=== PATIENT | female | born 1995 | race Caucasian/White ===

== ENCOUNTER → 2023-06-16 04:10 | Outpatient (CLI) | payer MEDICAID, SELFPAY ==
--- NOTE | 2023-06-16 | DI.US_ITS ---
Exam(s) US TRANSVAGINAL EXAM: US TRANSVAGINAL CLINICAL HISTORY: FOLLICLE MEASUREMENTS,ENDOMETRIAL THICKNESS,INFERTILITY,N97.9. TECHNIQUE: Limited transvaginal ultrasound exam was performed COMPARISON: No exams were available for comparison FINDINGS: UTERUS: Endometrium: 7 cm. OVARIES: Right: 3.3 x 2.0 x 3.2 cm Follicles: 1.1 centimeter follicle. 1.4 centimeter follicle. Left: 2.2 x 1.8 x 1.7 cm Follicles: 8 millimeter follicle. IMPRESSION: Endometrial stripe appears normal measures 7 millimeters. 1. Small bilateral ovarian follicles. DATA REPOSITORY:
== END ==
PROVIDERS: PCP Nurse Practitioner Family; Visit Provider Obstetrics & Gynecology
DX: N88.8 Other specified noninflammatory disorders of cervix uteri (principal); N97.9 Female infertility, unspecified
CPT/HCPCS: 76830

== ENCOUNTER → 2023-06-18 00:36 | Outpatient (CLI) | payer MEDICAID, SELFPAY ==
--- NOTE | 2023-06-18 | DI.US_ITS ---
Exam(s) US TRANSVAGINAL EXAM: US TRANSVAGINAL CLINICAL HISTORY: FOLLICLE MEASUREMENTS FOR IUI. TECHNIQUE: Limited transvaginal exam performed for follicle count endometrial thickness.. COMPARISON: US US TRANSVAGINAL from 06/16/2023 FINDINGS: UTERUS: Position: Anteverted. Endometrium: 7 millimeters Myometrium: Unremarkable. Cervix: Unremarkable. OVARIES: Right: 12 millimeter follicle. Left: 11 millimeter, 7 millimeter and 12 millimeter follicles. CUL-DE-SAC: Free fluid: None. IMPRESSION: Endometrial stripe 7 millimeters. One follicle right ovary. Three follicles left ovary. DATA REPOSITORY:
== END ==
PROVIDERS: PCP Nurse Practitioner Family; Visit Provider Obstetrics & Gynecology Reproductive Endocrinology
DX: N97.9 Female infertility, unspecified (principal)
CPT/HCPCS: 76830

== ENCOUNTER 2024-05-12 16:05 | Emergency (ER) | payer MEDICAID, SELFPAY ==
[2024-05-12 16:12] VITALS: BP 139/94; PULSE 87; RESP 10; TEMP 36.5; O2SAT 98
--- NOTE | 2024-05-12 16:30 | DI.RAD_ITS ---
Exam(s) XR KNEE RT 3V AP,LAT,NANI EXAM: XR KNEE RT 3V AP,LAT,NANI CLINICAL HISTORY: knee pain. TECHNIQUE: 2D digital imaging was performed. COMPARISON: No exams were available for comparison FINDINGS: 3 views No evidence of acute fracture nor obvious joint effusion. Bone density normal. No knee joint space narrowing. No osteochondral defects seen. Increased density anteriorly is related to a slightly prominent anterior to tibial tubercle. There i s evidence of prior Fishs Eddy Schlatter's. IMPRESSION: No acute osseous findings in the right knee. No joint effusion evident. DATA REPOSITORY: RADIATION DOSE DELIVERED:
--- NOTE | 2024-05-12 18:19 | W.ED.GENAD ---
Discharge Plan Disposition Patient Disposition: Home Condition: Stable Discharge Details Clinical Impression: Acute pain of right knee Primary Care Provider: None,None ED Provider: Shawn Santos Home Meds and New Rx's Prescriptions: No Action epinephrine 0.3 mg/0.3 mL auto-injector 0.3 ml IM ONCE PRN Patient Comments: INJECT INTRAMUSCULARLY NEEDED FOR SEVERE ALLERGIC REACTION, MAY REPEATE ONE TIME IN 5 MINUTES IF NOT RESPONDING. THEN CALL 911 Discharge Instructions Additional Instructions: wear brace and use crutches for comfort. bear weight as tolerated an outpatient MRI has been ordered and referral to orthopedics placed. please get MRI before ortho appointment. Referrals: Mekhi Lozano MD [ [facility] STAFF PHYSICIAN] - [facility] General Date/Time Provider Initiated Documentation: 05/12/24 16:33. Limitations to Documentation: no limitations. Information obtained by: patient. HPI Narrative: 28-year-old female without significant past medical history presents for evaluation of right knee pain. 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 She reports that it felt like it bent backwards. Since that time she has had progressively worsening pain in the knee. Pain worse when the knee is hanging unsupported. Worse with walking. Reports that she went to urgent care yesterday, no x-ray imaging was obtained, but she did get an Reddy wrap and she reports some relief with that. She reports history of knee surgery about 10 years ago. Related Data Home Medications ?Medication ?Instructions ?Recorded ?Confirmed epinephrine 0.3 mg/0.3 mL 0.3 ml IM ONCE PRN 05/11/24 05/12/24 injection, auto-injector Allergies Allergy/AdvReac Type Severity Reaction Status Date / Time venom-honey bee Allergy Severe Anaphylaxis Verified 05/12/24 16:17 menthol Allergy Intermediate localized Unverified 05/12/24 16:17 reash morphine Allergy Skin Rash Unverified 05/12/24 16:17 codeine AdvReac Intermediate MAKES HER Unverified 05/12/24 16:17 HYPER Medical Tape AdvReac Intermediate Skin Rash Uncoded 05/12/24 16:17 General Stated Complaint: Orthopedic FABI: 4 Exam Narrative Exam Narrative: Review of Systems: All systems reviewed & are unremarkable except as noted in HPI and below Well-developed, no acute distress NCAT Unlabored respiratory effort Right knee with scattered bruising noted. Mild effusion, no patellar instability, straight leg raise intact. Significant tenderness with palpation Course Vital Signs Vital signs: Vital Signs Temperature 36.5 C 05/12/24 16:12 Pulse 87 05/12/24 16:12 Respiratory Rate 10 L 05/12/24 16:12 Blood Pressure 139/94 H 05/12/24 16:12 Pulse Oximetry 98 05/12/24 16:12 Temperature 36.5 C 05/12/24 16:12 Temperature Source Oral 05/12/24 16:12 Pulse 87 05/12/24 16:12 Respiratory Rate 10 L 05/12/24 16:12 Respiratory Effort Normal, Non-Labored 05/12/24 16:18 Blood Pressure 139/94 H 05/12/24 16:12 Blood Pressure Position Sitting 05/12/24 16:12 Pulse Oximetry 98 05/12/24 16:12 Oxygen Delivery Method Room Air 05/12/24 16:12 Oxygen Flow Rate 0 05/12/24 16:12 Pain Level 7 05/12/24 16:50 Lab/Test Results Lab/Test Results: POC- Test(urine) Negative Medical Decision Making Emergent evaluation of right knee pain. Traumatic injury mechanism is minimal however there could be some hyper extension process and concern for ligamentous disruption. The patient does have history of surgery. An x-ray of the right knee was obtained. I did review the radiology report: No acute bony process. Given her mechanism and symptoms, she was provided a knee brace and crutches for weightbearing as tolerated and comfort. I have been ordered an outpatient MRI to facilitate her orthopedic follow-up. If MRI is abnormal, she should make follow-up appointment with orthopedics. Referral has been sent. Quality:SDOH Health Related Social Needs: No Data to Display PFSH All Active Problems Acute pain of right knee (Acute) Depression (Acute) Dysuria (Acute 10/24/12) History of arthroscopy of knee (Acute) Kidney stone (Acute 10/23/13) CT scan 2013 (2x 3mm on right - 1x 2mm on left)/Urology Surgical History Arthroplasty of knee x 2; SONI OSBORN Family History Mother Hyperlipidemia Father Essential hypertension Heart disease Hyperlipidemia Myocardial infarction Maternal Grandfather No problems noted. Paternal Grandfather Essential hypertension Heart disease Myocardial infarction Maternal Grandmother Essential hypertension Diabetes Heart disease Hyperlipidemia Paternal Grandmother Essential hypertension Stroke Son No problems noted. Daughter No problems noted. Social History Smoking/Tobacco Use Status: Never Smoking risk assessment performed?: Yes Alcohol Intake: former Drug use: Never Substance use type: does not use Caregiver/Support person: No Household members: family and children Housing: apartment Communication Needs: None Do you need help understanding health information?: Rarely Pets and animals: Yes Pets and animals: cat(s) and dog(s) Sexually active: Yes Do you think of yourself as: straight/heterosexual Current gender identity: female What is your relationship status?: How often do you talk on the phone with friends or family?: three or more times per week How often do you get together with friends or relatives?: twice per week How often do you attend gnosticist or adventism services?: decline to answer Do you belong to any clubs or organized social groups?: no Panel score (0-1 are the most socially isolated patients): 2 What type of physical activity do you participate in: none Annette/Samaritan: None Special annette needs: No Seatbelt use: always Helmet use: Yes Helmet use: sometimes Drive 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 Do you feel safe at home: Yes Do you feel safe in your relationship?: Yes PAWSS Have you Been Recently Intoxicated or Drunk Within the Last 30 days?: No Have you Ever Experienced Previous Episodes of Alcohol Withdrawal?: No Have you ever Experienced Withdrawal Seizures?: No Have you ever Experienced Delirium Tremens(DT)s?: No Have you ever undergone Alcohol Rehabilitation Treatment (i.e, inpt ot outpatient treatment programs)?: No Have you ever Experienced Blackouts?: No Have you ever Combined Alcohol with other Downers within the last 90 days?: No Have you ever Combined Alcohol with any other Substance of Abuse during the last 90 days?: No Positive Blood Alcohol level on Presentation? [PCS.BAL]: No Evidence of Increased Autonomic Activity (i.e. HR>120, tremor, sweating, agitation, nausea)?: No Result: 0
--- NOTE | 2024-05-13 12:21 | NUR.NOTE ---
Accessed chart for [facility] billing purposes; to get discharge diagnosis. Nursing Note:
== END 2024-05-12 17:24 | disposition home or self-care (01) ==
PROVIDERS: Emergency Provider Emergency Medicine
DX: M25.561 Pain in right knee (principal)
CPT/HCPCS: 73562; 81025; 99283

== ENCOUNTER 2024-05-15 09:54 | Outpatient (CLI) | payer MEDICAID, SELFPAY ==
--- NOTE | 2024-05-15 | DI.MRI_ITS ---
Exam(s) MR LOWER JOINT RT WO EXAM: MR LOWER JOINT RT WO CLINICAL HISTORY: Jt instability and pain, x-ray negative, ? internal derangement. TECHNIQUE: Multiplanar multisequence MRI was performed. COMPARISON: MR MRI R LOWER JOINT WO CONT from 08/06/2010 CR XR KNEE RT 3V AP,LAT,NANI from 05/12/2024 FINDINGS: BONES: There is no fracture or contusion pattern. Postsurgical changes at region of tibial tuberosi ty. JOINTS: A trace joint effusion is present. Articular cartilage: Patellofemoral joint: Articular cartilage is unremarkable. Medial femoral tibial joint: Articular cartilage is unremarkable. Lateral femoral tibial joint: Articular cartilage is unremarkable. LIGAMENTS: Anterior Cruciate: Unremarkable. Posterior Cruciate: Unremarkable. Medial Collateral:Unremarkable. Lateral Collateral ligament complex: Unremarkable. TENDONS: Extensor mechanism: Unremarkable. Medial retinaculum: Unremarkable. Lateral retinaculum: Unremarkable. Popliteus: Unremarkable. MENISCI: The medial meniscus is unremarkable. The lateral meniscus is unremarkable. MUSCLES: Unremarkable. SOFT TISSUES: Unremarkable. IMPRESSION: Postsurgical changes at region of tibial tuberosity. No evidence of internal derangement. DATA REPOSITORY:
== END 2024-05-15 10:14 ==
LOC: DI 09:56
PROVIDERS: Visit Provider Emergency Medicine
DX: Z98.890 Other specified postprocedural states (principal); M79.661 Pain in right lower leg
CPT/HCPCS: 73721

== ENCOUNTER 2024-12-20 20:16 | Emergency (ER) | payer MEDICAID, SELFPAY ==
[2024-12-20 20:24] VITALS: BP 140/87; PULSE 105; RESP 18; TEMP 36.9; O2SAT 98
[2024-12-20] MEDS: Diph,Pertuss(Acell),Tet Vac/Pf 0.5 ML SYR IM (21:10)
--- NOTE | 2024-12-20 21:27 | ED.GENADUL_ITS ---
Discharge Plan Disposition Patient Disposition: Home Condition: Stable Discharge Details Clinical Impression: Leg wound, left Primary Care Provider: Unknown,Unknown ED Provider: Shawn Santos Home Meds and New Rx's Prescriptions: No Action epinephrine 0.3 mg/0.3 mL auto-injector 0.3 ml IM ONCE PRN Patient Comments: INJECT INTRAMUSCULARLY NEEDED FOR SEVERE ALLERGIC REACTION, MAY REPEATE ONE TIME IN 5 MINUTES IF NOT RESPONDING. THEN CALL 911 ondansetron HCl 4 mg tablet 4 mg PO Q8H PRN (Reason: nausea and vomiting) Qty: 10 0RF Discharge Instructions Additional Instructions: KEEP WOUND CLEAN WITH SOAP AND WATER TETANUS WAS UPDATED TODAY HPI General Date/Time Provider Initiated Documentation: 12/20/24 20:23 . Limitations to Documentation: no limitations . Information obtained by: patient . HPI Narrative: For 29-year-old female without significant past medical history presents for evaluation of left leg injury. The patient reports just prior to arrival she was rushing through her home when she scratched her leg on a piece of wood and that the nail went into her leg. There was some bleeding. Local wound care was performed prior to arrival and bleeding has stopped. She states that she was not sure if she needed to get a tetanus shot. Her last tetanus shot was with her 7 years ago. Related Data Home Medications ?Medication ?Instructions ?Recorded ?Confirmed epinephrine 0.3 mg/0.3 mL 0.3 ml IM ONCE PRN 05/11/24 09/18/24 injection, auto-injector ondansetron HCl 4 mg tablet 4 mg PO Q8H PRN nausea and 09/13/24 09/13/24 vomiting #10 tabs Previous Rx's ?Medication ?Instructions ?Recorded ondansetron HCl 4 mg tablet 4 mg PO Q8H PRN nausea and 09/13/24 vomiting #10 tabs Allergies Allergy/AdvReac Type Severity Reaction Status Date / Time venom-honey bee Allergy Severe Anaphylaxis Verified 09/13/24 14:50 menthol Allergy Intermediate localized Unverified 09/13/24 14:50 reash morphine Allergy Skin Rash Unverified 09/13/24 14:50 codeine AdvReac Intermediate MAKES HER Unverified 09/13/24 14:50 HYPER Medical Tape AdvReac Intermediate Skin Rash Uncoded 09/13/24 14:50 General Stated Complaint: GenMedical FABI: 4 Exam Narrative Exam Narrative: Review of Systems: All systems reviewed & are unremarkable except as noted in HPI and below Well-developed, no acute distress NCAT Anterior left leg with small abrasion and puncture wound, no active bleeding, no crepitus, no significant tenderness. Course Vital Signs Vital signs: Vital Signs Temperature 36.9 C 12/20/24 20:24 Pulse 105 H 12/20/24 20:24 Respiratory Rate 18 12/20/24 20:24 Blood Pressure 140/87 12/20/24 20:24 Pulse Oximetry 98 12/20/24 20:24 Temperature 36.9 C 12/20/24 20:24 Temperature Source Oral 12/20/24 20:24 Pulse 105 H 12/20/24 20:24 Respiratory Rate 18 12/20/24 20:24 Respiratory Effort Normal 12/20/24 20:27 Blood Pressure 140/87 12/20/24 20:24 Pulse Oximetry 98 12/20/24 20:24 Oxygen Delivery Method Room Air 12/20/24 20:24 Oxygen Flow Rate 0 12/20/24 20:24 Pain Level 0 12/20/24 20:24 Medical Decision Making Emergent evaluation of leg injury. Patient here requiring a tetanus shot. There is no signs of acute infectious etiology the wound is small. No indication for imaging and low suspicion for foreign body. Recommend continued local wound care and her tetanus was updated. Follow-up as needed Quality:SDOH Health Related Social Needs: No Data to Display [facility] All Active Problems (Updated 12/20/24 @ 20:55 by Shawn Santos MD) Leg wound, left (Acute) Depression (Acute) Dysuria (Acute 10/24/12) History of arthroscopy of knee (Acute) Kidney stone (Acute 10/23/13) CT scan 2013 (2x 3mm on right - 1x 2mm on left)/Urology Surgical History Arthroplasty of knee x 2; SONI OSBORN Family History Mother Hyperlipidemia Father Essential hypertension Heart disease Hyperlipidemia Myocardial infarction Maternal Grandfather No problems noted. Paternal Grandfather Essential hypertension Heart disease Myocardial infarction Maternal Grandmother Essential hypertension Diabetes Heart disease Hyperlipidemia Paternal Grandmother Essential hypertension Stroke Son No problems noted. Daughter No problems noted. Social History Smoking/Tobacco Use Status: Never Smoking risk assessment performed?: Yes Alcohol Intake: former Drug use: Never Substance use type: does not use Caregiver/Support person: No Household members: family and children Housing: apartment Communication Needs: None Do you need help understanding health information?: Rarely Pets and animals: Yes Pets and animals: cat(s) and dog(s) Sexually active: Yes Do you think of yourself as: straight/heterosexual Current gender identity: female What is your relationship status?: How often do you talk on the phone with friends or family?: three or more times per week How often do you get together with friends or relatives?: twice per week How often do you attend mandaeism or yazidi services?: decline to answer Do you belong to any clubs or organized social groups?: no Panel score (0-1 are the most socially isolated patients): 2 What type of physical activity do you participate in: none Annette/Lutheran: None Special annette needs: No Seatbelt use: always Helmet use: Yes Helmet use: sometimes Drive intox 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
== END 2024-12-20 21:22 | disposition home or self-care (01) ==
PROVIDERS: Emergency Provider Emergency Medicine
DX: S81.812A Laceration without foreign body, left lower leg, initial encounter (principal); W26.8XXA Contact with other sharp object(s), not elsewhere classified, initial encounter
CPT/HCPCS: 99283 ×2; 90471; 90715

== ENCOUNTER 2024-12-31 21:03 | Emergency (ER) | payer OTHER, SELFPAY ==
[2024-12-31 21:06] VITALS: BP 151/97; PULSE 93; RESP 20; TEMP 36.6; O2SAT 98
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
[2024-12-31] MEDS: Cyclobenzaprine 10 MG TAB, 3 TABS/BTL PO (21:42)
[2024-12-31 21:47] VITALS: PULSE 90; RESP 18; O2SAT 99
== END 2024-12-31 21:48 | disposition home or self-care (01) ==
LOC: ER 21:50
PROVIDERS: Emergency Provider Physician Assistant
DX: G44.319 Acute post-traumatic headache, not intractable (principal); F07.81 Postconcussional syndrome; V89.2XXA Person injured in unspecified motor-vehicle accident, traffic, initial encounter
CPT/HCPCS: 99283

== ENCOUNTER → 2025-07-17 00:22 | Outpatient (CLI) | payer MEDICAID, SELFPAY ==
--- NOTE | 2025-07-17 | DI.US_ITS ---
Exam(s) US TRANSVAGINAL EXAM: US TRANSVAGINAL CLINICAL HISTORY: Z31.83,ENCOUNTER FOR ART PROCEDURE. TECHNIQUE: Transvaginal pelvic ultrasound was performed using standard protocol. COMPARISON: US US TRANSVAGINAL from 06/18/2023 FINDINGS: UTERUS: Position: Anteverted. Size: 8.8 long by 4.1 AP by 5.1 transverse cm Endometrium: 0.6 cm. The endometrial stripe is homogeneous. Normal for patient's menstrual status. There is a tiny amount of fluid seen within the endometrial canal. Myometrium: Unremarkable. Cervix: Unremarkable. OVARIES: Right: 2.6 x 2.5 x 2.5 cm Cyst or mass: No suspicious cystic or solid masses. There are 6 follicles present. 6 x 5 x 6 mm; 7 x 6 x 7 mm; 8 x 6 x 9 mm; 9 x 6 x 8 mm; 5 x 7 x 6 mm and 3 x 4 x 4 mm. Left: 2.9 x 1.6 x 2.5 cm Cyst or mass: No suspicious cystic or solid masses. There are 5 follicles present. 8 x 5 x 6 mm; 4 x 4 x 5 mm; 5 x 5 x 5 mm; 5 x 4 x 4 mm and 7 x 6 x 7 mm. DOPPLER: Color: Symmetric and uniform flow to both ovaries. CUL-DE-SAC: Free fluid: None. Other: None. IMPRESSION: 1. Normal-appearing uterus with endometrial stripe within normal limits. 2. Bilateral ovarian follicles as described above. DATA REPOSITORY:
== END ==
PROVIDERS: PCP Nurse Practitioner Family; Visit Provider Obstetrics & Gynecology Reproductive Endocrinology
DX: Z31.83 Encounter for assisted reproductive fertility procedure cycle (principal); N83.01 Follicular cyst of right ovary
CPT/HCPCS: 76830

== ENCOUNTER 2025-07-17 09:15 | Outpatient (CLI) | payer MEDICAID, SELFPAY ==
[2025-07-17 09:03] LABS: TSH 2.19 uIU/mL (0.55-4.78)
[2025-07-17 09:07] LABS: HCG Quant, Pregnancy < 3 mIU/mL (1.5-4.2)
[2025-07-17 21:19] LABS: T3,Free 3.7 pg/mL (2.8-5.3)
[2025-07-17 22:02] LABS: FSH 8.1 mIU/mL (See Note)
[2025-07-17 22:07] LABS: LH 8.6 mIU/mL (See Note)
== END 2025-07-17 09:16 | disposition home or self-care (01) ==
LOC: LBO 09:15
PROVIDERS: PCP Nurse Practitioner Family; Referring Provider Obstetrics & Gynecology Reproductive Endocrinology; Visit Provider Obstetrics & Gynecology Reproductive Endocrinology
DX: Z31.83 Encounter for assisted reproductive fertility procedure cycle (principal)
CPT/HCPCS: 36415; 82670; 83001; 83002; 83520; 84144; 84439; 84443; 84481; 84702

== ENCOUNTER → 2025-07-20 00:29 | Outpatient (CLI) | payer MEDICAID, SELFPAY ==
--- NOTE | 2025-07-20 | DI.US_ITS ---
Exam(s) US TRANSVAGINAL EXAM: US TRANSVAGINAL CLINICAL HISTORY: ART PROCEDURE Z31.83 INCLUDE # FOLLICLES, SIZA OF EACH, ENDOMETRIAL TECHNIQUE: Ultrasound of the pelvis was performed transvaginal. COMPARISON: US US TRANSVAGINAL from 07/17/2025 FINDINGS: UTERUS: Anteverted Measures 7.3 cm length x 3.5 cm AP x 4.9 cm wide. There are no uterine fibroids. Endometrial thickness measures 4.8 mm and appears relatively homogeneous. There is no fluid in the endometrial canal. There is a small hyperechoic focus in the right-side of the endometrium at the level the fundus, this measuring 2-3 mm. CERVIX: There is no fluid in the endocervical canal. A few tiny nabothian cysts are noted. RIGHT OVARY: Measures 3.2 x 2.2 x 2.5 cm Appears to contain 14 follicles which are detailed on the faxed follicle sheet. The largest follicles in the right ovary measures 8 x 8 x 8 6 mm and 7 x 7 x 7 mm LEFT OVARY: Measures 3.3 x 1.7 x 2.3 cm Appears to contain 9 follicles which are detailed on the fax follicle sheet. The largest follicle in the left ovary measures 9 x 9 x 8 mm. CUL-DE-SAC: No free fluid evident. IMPRESSION: 1. Endometrial stripe thickness is 4.8 cm and relatively homogeneous 2. Ovarian follicles as above. The largest follicle is in the left ovary and measures 9 x 9 x 8 mm. 3. No free fluid evident in the adnexal regions and cul-de-sac. Please also refer to accompanying faxed sheet DATA REPOSITORY:
== END ==
LOC: DI 00:29
PROVIDERS: PCP Nurse Practitioner Family; Visit Provider Obstetrics & Gynecology Reproductive Endocrinology
DX: Z31.83 Encounter for assisted reproductive fertility procedure cycle (principal)
CPT/HCPCS: 76830

== ENCOUNTER 2025-07-20 02:25 | Outpatient (CLI) | payer MEDICAID, SELFPAY ==
[2025-07-20 18:23] LABS: LH 21.2 mIU/mL (See Note)
== END 2025-07-20 02:26 | disposition home or self-care (01) ==
LOC: LBO 02:25
PROVIDERS: PCP Nurse Practitioner Family; Visit Provider Obstetrics & Gynecology Reproductive Endocrinology
DX: Z31.83 Encounter for assisted reproductive fertility procedure cycle (principal)
CPT/HCPCS: 36415; 82670; 83002; 84144

== ENCOUNTER → 2025-07-23 00:43 | Outpatient (CLI) | payer MEDICAID, SELFPAY ==
--- NOTE | 2025-07-23 | DI.US_ITS ---
Exam(s) US TRANSVAGINAL EXAM: US TRANSVAGINAL CLINICAL HISTORY: # ALL FOLLICLES SIZE, ENDOMETRIAL THICKNESS TYPE TRILAMINAR. TECHNIQUE: Ultrasound of the pelvis, transvaginal was performed using standard protocol. COMPARISON: US US TRANSVAGINAL from 07/20/2025 FINDINGS: UTERUS: Position: Anteverted. Size: 8.5 x 3.6 x 5.0 cm Endometrium: 7 mm. Trilaminar appearance. Myometrium: C section scar. Cervix: Unremarkable. OVARIES: Right: 3.2 x 2.3 x 2.8 cm Follicles: Total of 10 follicles. The largest follicle measures 17 x 15 x 14 millimeters. Second largest follicle measures 13 x 12 x 10 millimeters. Other follicles measure less than 1 cm in size. Left: 4.1 x 2.4 x 3.0 cm Follicles: 12. Largest follicle measures 14 x 11 x 13. Three follicles measure near 10 millimeters. Other small follicles present. DOPPLER: Color: Symmetric and uniform flow to both ovaries. No hyperemia. Duplex: Normal ovarian arterial waveforms visualized. CUL-DE-SAC: Free fluid: None. IMPRESSION: 1. Endometrial stripe has a trilaminar appearance and measures 7 millimeters in thickness. 2. Bilateral ovarian follicles, largest on the right measuring 17 millimeters. DATA REPOSITORY:
== END ==
LOC: DI 00:43
PROVIDERS: PCP Nurse Practitioner Family; Visit Provider Obstetrics & Gynecology Reproductive Endocrinology
DX: Z31.83 Encounter for assisted reproductive fertility procedure cycle (principal); N83.01 Follicular cyst of right ovary; N83.02 Follicular cyst of left ovary
CPT/HCPCS: 76830

== ENCOUNTER 2025-07-23 01:23 | Outpatient (CLI) | payer MEDICAID, SELFPAY ==
[2025-07-23 18:20] LABS: LH 7.9 mIU/mL (See Note)
== END 2025-07-23 01:24 | disposition home or self-care (01) ==
LOC: LBO 01:23
PROVIDERS: PCP Nurse Practitioner Family; Visit Provider Obstetrics & Gynecology Reproductive Endocrinology
DX: Z31.83 Encounter for assisted reproductive fertility procedure cycle (principal)
CPT/HCPCS: 36415; 82670; 83002; 84144

== ENCOUNTER → 2025-07-25 00:12 | Outpatient (CLI) | payer MEDICAID, SELFPAY ==
--- NOTE | 2025-07-25 | DI.US_ITS ---
Exam(s) US TRANSVAGINAL EXAM: US TRANSVAGINAL CLINICAL HISTORY: Z31.83, # ALL FOLLICLES AND SIZE EACH ENDOMETRIAL TECHNIQUE: Ultrasound of the pelvis was performed both transabdominal and transvaginal. COMPARISON: US US TRANSVAGINAL from 07/23/2025 FINDINGS: UTERUS: Anteverted. scar noted in the myometrium Measures cm length x cm AP x cm wide. There are no uterine fibroids. Endometrial thickness measures 9.1 mm and exhibits trilaminar appearance There is no fluid in the endometrial canal. CERVIX: Small nabothian cyst in the upper cervix noted. OVARIES: See faxed follicle count worksheet. The left ovary was more difficult to visualize on today's study because of overlying bowel gas. RIGHT OVARY: Measures 3.8 x 4.0 x 2.6 cm Total 9 follicles with the largest measuring 1.4 x 1.0 x 1.7 cm and 1.3 x 0.9 x 1.4 cm. See polyp worksheet LEFT OVARY: Measures 4.2 x 4.2 x 3.7 cm Total 6 follicles with largest measuring 1.9 x 1.8 x 1.8 cm and 1.7 x 1.6 x 1.3 cm. See follicle worksheet CUL-DE-SAC: No free fluid evident. IMPRESSION: 1. Endometrial stripe again exhibits trilaminar appearance and measures 9.1 mm thickness. 2. Bilateral ovarian follicles as described above. The largest follicle is in the left ovary and measures 19 x 18 x 18 mm. 3. No free fluid. See separate follicle worksheet. DATA REPOSITORY:
== END ==
LOC: DI 00:12
PROVIDERS: PCP Nurse Practitioner Family; Visit Provider Obstetrics & Gynecology Reproductive Endocrinology
DX: Z31.83 Encounter for assisted reproductive fertility procedure cycle (principal); N83.01 Follicular cyst of right ovary; N83.02 Follicular cyst of left ovary
CPT/HCPCS: 76830

== ENCOUNTER 2025-07-25 00:40 | Outpatient (CLI) | payer MEDICAID, SELFPAY ==
[2025-07-25 17:57] LABS: LH 4.0 mIU/mL (See Note)
== END 2025-07-25 00:41 | disposition home or self-care (01) ==
LOC: LBO 00:41
PROVIDERS: PCP Nurse Practitioner Family; Visit Provider Obstetrics & Gynecology Reproductive Endocrinology
DX: Z31.83 Encounter for assisted reproductive fertility procedure cycle (principal)
CPT/HCPCS: 36415; 82670; 83002; 84144

== ENCOUNTER → 2025-07-27 01:11 | Outpatient (CLI) | payer MEDICAID, SELFPAY ==
--- NOTE | 2025-07-27 | DI.US_ITS ---
Exam(s) US TRANSVAGINAL EXAM: US TRANSVAGINAL CLINICAL HISTORY: Z31.83,ENCOUNTER FOR ART PROCEDURE,INFERTILITY. TECHNIQUE: Ultrasound of the pelvis, transvaginal was performed using standard protocol. COMPARISON: US US TRANSVAGINAL from 07/25/2025 FINDINGS: UTERUS: Position: Anteverted. Size: 9.1 x 4.3 x 6.7 cm Endometrium: 12 mm. Trilaminar appearance. Myometrium: Unremarkable. scar. Cervix: Unremarkable. OVARIES: Right: 4.3 x 2.9 x 3.1 cm Follicle count: 3, largest measuring 2.3 x 1.5 x 2.1 cm. Left: 4.7 x 3.5 x 3.8 cm Follicle count: 11 follicles, largest measuring 2.8 x 2.3 x 2.4 cm. DOPPLER: Color: Symmetric and uniform flow to both ovaries. No hyperemia. Duplex: Normal ovarian arterial waveforms visualized. CUL-DE-SAC: Free fluid: None. IMPRESSION: 1. Normal-appearing uterus with endometrial stripe within normal limits. 2. Ovarian follicle count as above. DATA REPOSITORY:
== END ==
LOC: DI 01:11
PROVIDERS: PCP Nurse Practitioner Family; Visit Provider Obstetrics & Gynecology Reproductive Endocrinology
DX: Z31.83 Encounter for assisted reproductive fertility procedure cycle (principal)
CPT/HCPCS: 76830

== ENCOUNTER 2025-07-27 01:37 | Outpatient (CLI) | payer MEDICAID, SELFPAY ==
[2025-07-27 18:20] LABS: LH 17.4 mIU/mL (See Note)
== END 2025-07-27 01:38 | disposition home or self-care (01) ==
LOC: LBO 01:37
PROVIDERS: PCP Nurse Practitioner Family; Visit Provider Obstetrics & Gynecology Reproductive Endocrinology
DX: Z31.83 Encounter for assisted reproductive fertility procedure cycle (principal)
CPT/HCPCS: 36415; 82670; 82679; 83002; 84144